=== PATIENT | male | born 2000 | race Caucasian/White ===

== ENCOUNTER 2024-05-11 10:11 | Outpatient (CLI) | payer OTHER ==
[2024-05-11] MEDS ORDERED: Iopamidol 300 61% 100 ML VIAL FS ONE (15:32)
== END 2024-05-11 10:12 | disposition home or self-care (01) ==
LOC: CSHCT 10:11
PROVIDERS: ATTEND Family Medicine
DX: R31.29 Other microscopic hematuria (principal); N20.0 Calculus of kidney
CPT/HCPCS: 74178